=== PATIENT | male | born 1990 | race Caucasian/White ===

== ENCOUNTER 2022-07-05 15:04 | Emergency (ER) | payer MEDICAID, OTHER, SELFPAY ==
[~2022-07-05] VITALS: Ht 170.2 cm; Wt 74.8 kg
[2022-07-05] MEDS ORDERED: IBUP80TA (15:09)
[2022-07-05] MEDS ORDERED: MELO10CA2 PO (16:56)
[2022-07-05 17:01] VITALS: BP 129/76
== END 2022-07-05 17:10 | disposition home or self-care (01) ==
LOC: M ED 15:04
DX: M25.461 Effusion, right knee (principal); F17.200 Nicotine dependence, unspecified, uncomplicated